=== PATIENT | female | born 1975 | race Caucasian/White ===

== ENCOUNTER 2020-10-09 16:38 | Emergency (ER) | payer OTHER ==
[~2020-10-09] VITALS: Ht 172.7 cm; Wt 66.7 kg
[2020-10-09] MEDS ORDERED: DOXYCYCLINE 10100 MG PO (16:55)
[2020-10-09] MEDS ORDERED: SUPRAX400 M1 PO (16:55)
[2020-10-09 17:03] VITALS: BP 144/70
== END 2020-10-09 17:04 | disposition home or self-care (01) ==
LOC: M.ERS 16:38
DX: Z20.2 Contact with and (suspected) exposure to infections with a predominantly sexual mode of transmission (principal); Z88.0 Allergy status to penicillin; Z88.5 Allergy status to narcotic agent; Z88.6 Allergy status to analgesic agent